=== PATIENT | female | born 1990 | race African-American/Black ===

== ENCOUNTER → 2018-02-10 | Outpatient (CLI) | payer OTHER | END | disposition home or self-care (01) | LOC: U/S 17:48 | DX: O36.71X0 Maternal care for viable fetus in abdominal pregnancy, first trimester, not applicable or unspecified (principal); Z3A.10 10 weeks gestation of pregnancy | CPT/HCPCS: 76801 ==

== ENCOUNTER 2018-08-04 12:41 | Outpatient (CLI) | payer OTHER ==
[2018-08-04 13:46] LABS: ADD UMIC YES; UR ASCORBIC ACID NEGATIVE (NEGATIVE); UR BACTERIA FEW /HPF (NONE SEEN); UR BILIRUBIN (Dip) NEGATIVE (NEGATIVE); UR BLOOD (Dip) 1+ mg/dL (NEGATIVE); UR BUDDING YEAST FEW /HPF (NONE SEEN); UR CLARITY CLOUDY (CLEAR); UR COLOR YELLOW (YELLOW); UR GLUCOSE (Dip) NEGATIVE (NEGATIVE); UR KETONES (Dip) NEGATIVE (NEGATIVE); UR LEUKOCYTE ESTERASE (Dip) 3+ Leu/ul (NEGATIVE); UR MUCUS FEW /HPF (NONE SEEN); UR NITRITE (Dip) POSITIVE (NEGATIVE); UR RBC 15 /HPF (0-5); UR SPECIFIC GRAVITY (Dip) 1.015 (1.003-1.030); UR SQUAMOUS EPITHELIAL CELL FEW /HPF (FEW); UR TOTAL PROTEIN (Dip) 1+ mg/dl (NEGATIVE); UR UROBILINOGEN (Dip) NEGATIVE (NEGATIVE); UR WBC > 182 /HPF (0-5)
[2018-08-04] MEDS: SOD CHLORIDE 0.9% 1,000 ML IV (14:27)
[2018-08-04] MEDS: CEFTRIAXONE 1 GM/50 ML (PMX) 50 ML IVPB (14:31)
== END 2018-08-04 16:00 | disposition home or self-care (01) ==
LOC: OBT 12:41 → L-D 12:42 → OBT 16:00
DX: O26.893 Other specified pregnancy related conditions, third trimester (principal); Z3A.35 35 weeks gestation of pregnancy; R30.0 Dysuria
CPT/HCPCS: 76818; 81001; 87086

== ENCOUNTER 2018-08-30 09:40 | Inpatient (IN) | payer OTHER ==
[2018-08-30] MEDS: LACTATED RINGER'S 1,000 ML IV ×3 (10:43→21:22)
[2018-08-30] MEDS ORDERED: METHYLERGONOVINE 0.2 MG INJ IM (11:00)
[2018-08-30] MEDS ORDERED: CARBOPROST 250 MCG INJ IM (11:00)
[2018-08-30] MEDS ORDERED: LIDOCAINE 1% (MPF) 30 ML INJ INJ (11:00)
[2018-08-30] MEDS ORDERED: MISOPROSTOL 200 MCG TAB PR (11:00)
[2018-08-30] MEDS ORDERED: OXYTOCIN 30 UNITS/LR 500 ML IV ×2 (11:00)
[2018-08-30] MEDS ORDERED: IBUPROFEN 600 MG TAB PO (11:00)
[2018-08-30 11:47] LABS: ADD MAN DIFF? NO
[2018-08-30 11:54] LABS: WHITE BLOOD COUNT 7.2 10^3/ul (4.8-10.8)
[2018-08-30 11:54] LABS: BASOPHILS % 0.3 % (0.0-2.0); EOSINOPHILS # 0.1 10^3/ul (0.0-0.5); EOSINOPHILS % 1.3 % (0.0-7.0); HEMATOCRIT 34.1 % (37.0-47.0); HEMOGLOBIN 10.7 g/dl (12.0-16.0); LYMPHOCYTES # 1.6 10^3/ul (0.8-2.9); LYMPHOCYTES % 21.5 % (15.0-51.0); MEAN CORPUSCULAR HEMOGLOBIN 26.7 pg (29.0-33.0); MEAN CORPUSCULAR HGB CONC 31.4 g/dl (32.0-37.0); MONOCYTE # 0.7 10^3/ul (0.3-0.9); MONOCYTES % 9.9 % (0.0-11.0); NEUTROPHIL # 4.8 10^3/ul (1.6-7.5); NEUTROPHILS % 66.3 % (39.0-77.0); PLATELET COUNT 277 10^3/UL (140-415); RED BLOOD COUNT 4.01 10^6/ul (4.20-5.40); RED CELL DISTRIBUTION WIDTH 14.9 % (11.5-14.5)
[2018-08-30] MEDS ORDERED: BUTORPHANOL 2 MG INJ IV (12:00)
[2018-08-30 12:10] LABS: INR 0.98; PROTIME 13.1 Sec (11.9-14.9)
[2018-08-30 12:11] LABS: PARTIAL THROMBOPLASTIN TIME 26.5 Sec (23.0-35.0)
[2018-08-30 12:46] LABS: HEPATITIS B SURFACE ANTIGEN NEGATIVE (NEGATIVE)
[2018-08-30] MEDS: MISOPROSTOL 50 MCG CAPSULE PO ×3 (13:39→21:00)
[2018-08-30 20:55] LABS: RAPID PLASMA REAGIN NONREACTIVE (NR)
[2018-08-31] MEDS: MISOPROSTOL 50 MCG CAPSULE PO ×5 (01:00→17:00)
[2018-08-31] MEDS: LACTATED RINGER'S 1,000 ML IV ×5 (05:18→23:38)
[2018-08-31] MEDS: OXYTOCIN 30 UNITS/LR 500 ML IV (10:54)
[2018-08-31] MEDS ORDERED: FENTAnyl 2MCG/ML-ROPIV 0.2% 100 ML (12:19)
[2018-08-31] MEDS ORDERED: DIPHENHYDRAMINE 50 MG INJ IV (12:30)
[2018-08-31] MEDS ORDERED: TRIMETHOBENZAMIDE 100 MG/ML VIAL IM (12:30)
[2018-08-31] MEDS ORDERED: NALOXONE (0.4 MG/ML) INJ IV (12:30)
[2018-08-31] MEDS: ONDANSETRON 4 MG INJ IV (17:09)
[2018-08-31] MEDS: FENTAnyl 2MCG/ML-ROPIV 0.2% 100 ML BAG EPI (18:31)
[2018-09-01] MEDS: FENTAnyl 2MCG/ML-ROPIV 0.2% 100 ML BAG EPI (00:28)
[2018-09-01] MEDS: ACETAMINOPHEN 325 MG TAB PO (01:05)
[2018-09-01] MEDS ORDERED: AMPICILLIN 2 GM/NS (PMX) 100 ML (02:52)
[2018-09-01] MEDS: AMPICILLIN 2 GM/NS (PMX) 100 ML IVPB (03:00)
[2018-09-01] MEDS: MINERAL OIL LIGHT 10 ML VIAL TOP (03:54)
[2018-09-01] MEDS: OXYTOCIN 30 UNITS/LR 500 ML IV (04:17)
[2018-09-01] MEDS: KETOROLAC 30 MG INJ IV (04:49)
[2018-09-01] MEDS ORDERED: DIBUCAINE 1% 30 GM OINT TOP (05:30)
[2018-09-01] MEDS ORDERED: MISOPROSTOL 200 MCG TAB PR (05:30)
[2018-09-01] MEDS: LACTATED RINGER'S 1,000 ML IV* (05:30)
[2018-09-01] MEDS ORDERED: METHYLERGONOVINE 0.2 MG INJ IM (05:30)
[2018-09-01] MEDS ORDERED: CARBOPROST 250 MCG INJ IM (05:30)
[2018-09-01] MEDS ORDERED: OXYTOCIN 30 UNITS/LR 500 ML IV (05:30)
[2018-09-01] MEDS ORDERED: ZOLPIDEM 5 MG TAB PO (05:30)
[2018-09-01] MEDS ORDERED: LANOLIN HPA 1 PKT TOP (05:30)
[2018-09-01] MEDS: CEPHALEXIN 500 MG CAP PO ×4 (06:28→23:53)
[2018-09-01] MEDS: IBUPROFEN 600 MG TAB PO ×4 (06:28→23:53)
[2018-09-01] MEDS ORDERED: AMPICILLIN 1 GM/NS (PMX) 50 ML IVPB (07:00)
[2018-09-01] MEDS: MAGNESIUM HYDROXIDE 30ML CUP PO ×2 (08:53→21:00)
[2018-09-01] MEDS: SENNA/DOCUSATE NA (8.6MG/50MG) TAB PO ×2 (08:53→21:00)
[2018-09-01] MEDS: HYDROCODONE/APAP (5/325) TAB PO (22:48)
[2018-09-02] MEDS: CEPHALEXIN 500 MG CAP PO ×4 (05:03→23:37)
[2018-09-02] MEDS: IBUPROFEN 600 MG TAB PO ×4 (05:03→23:38)
[2018-09-02] MEDS: HYDROCODONE/APAP (5/325) TAB PO ×2 (05:04→18:21)
[2018-09-02 08:37] LABS: ADD MAN DIFF? NO
[2018-09-02 08:43] LABS: WHITE BLOOD COUNT 8.9 10^3/ul (4.8-10.8)
[2018-09-02 08:43] LABS: BASOPHILS % 0.3 % (0.0-2.0); EOSINOPHILS # 0.3 10^3/ul (0.0-0.5); EOSINOPHILS % 2.9 % (0.0-7.0); HEMATOCRIT 28.7 % (37.0-47.0); HEMOGLOBIN 9.1 g/dl (12.0-16.0); LYMPHOCYTES # 1.9 10^3/ul (0.8-2.9); LYMPHOCYTES % 21.4 % (15.0-51.0); MEAN CORPUSCULAR HEMOGLOBIN 27.2 pg (29.0-33.0); MEAN CORPUSCULAR HGB CONC 31.7 g/dl (32.0-37.0); MEAN CORPUSCULAR VOLUME 85.7 fl (82.0-101.0); MEAN PLATELET VOLUME 10.5 fl (7.4-10.4); MONOCYTE # 0.9 10^3/ul (0.3-0.9); MONOCYTES % 9.9 % (0.0-11.0); NEUTROPHIL # 5.8 10^3/ul (1.6-7.5); NEUTROPHILS % 65.1 % (39.0-77.0); PLATELET COUNT 205 10^3/UL (140-415); RED BLOOD COUNT 3.35 10^6/ul (4.20-5.40); RED CELL DISTRIBUTION WIDTH 14.7 % (11.5-14.5)
[2018-09-02] MEDS: MAGNESIUM HYDROXIDE 30ML CUP PO ×2 (09:00→20:47)
[2018-09-02] MEDS: SENNA/DOCUSATE NA (8.6MG/50MG) TAB PO ×2 (09:00→20:47)
[2018-09-02] MEDS: MEPERIDINE 25 MG INJ IV (09:14)
[2018-09-02] MEDS: BENZOCAINE 20% 56 ML SPRAY TOP (09:17)
[2018-09-02] MEDS: LACTATED RINGER'S 1,000 ML IV ×2 (09:55→14:44)
[2018-09-02] MEDS ORDERED: MIDAZOLAM 1 MG/ML 2 ML INJ ×2 (13:00→13:34)
[2018-09-02] MEDS ORDERED: ONDANSETRON 4 MG INJ (13:12)
[2018-09-02] MEDS ORDERED: CEFAZOLIN 1 GM INJ (13:13)
[2018-09-02] MEDS: BUPIVACAINE 0.25%/EPI (SDV) 30 ML INJ (13:55)
[2018-09-02] MEDS ORDERED: MEPERIDINE 25 MG INJ IV (14:00)
[2018-09-02] MEDS ORDERED: FENTAnyl 50 MCG/ML VIAL IV ×2 (14:00)
[2018-09-02] MEDS: FENTAnyl 50 MCG/ML VIAL IV (14:34)
[2018-09-02] MEDS: METOCLOPRAMIDE 10 MG INJ IV (14:34)
[2018-09-02] MEDS: BUTORPHANOL 2 MG INJ IM (14:39)
[2018-09-02] MEDS: KETOROLAC 60 MG INJ IM (15:18)
[2018-09-02] MEDS ORDERED: ACETAMINOPHEN 325 MG TAB PO (17:30)
[2018-09-03] MEDS: CEPHALEXIN 500 MG CAP PO ×2 (05:28→11:14)
[2018-09-03] MEDS: IBUPROFEN 600 MG TAB PO ×2 (05:28→11:14)
[2018-09-03] MEDS: WITCH HAZEL/GLYCERIN PAD PR (09:11)
[2018-09-03] MEDS: MAGNESIUM HYDROXIDE 30ML CUP PO (09:11)
[2018-09-03] MEDS: SENNA/DOCUSATE NA (8.6MG/50MG) TAB PO (09:12)
[2018-09-03] MEDS: DIPHTH/TET/ACEL PERTUSS (ADULT) 0.5 ML VIAL IM* (09:42)
[2018-09-03] MEDS: VARICELLA VACCINE LIVE/PF 1,350 UNIT/0.5 ML ML SC* (09:42)
[2018-09-03] MEDS: MEASLES,MUMPS,RUBELLA VACCINE INJ SC* (09:43)
== END 2018-09-03 13:35 | disposition home or self-care (01) | DRG 798 ==
LOC: PP1 09-01 05:45 → L-D 09:40
PROVIDERS: Obstetrics & Gynecology
PROC: 0UB70ZZ Excision of Bilateral Fallopian Tubes, Open Approach (ICD-10-PCS; 2018-09-02 12:30)
PROC: 10E0XZZ Delivery of Products of Conception, External Approach (ICD-10-PCS; principal; 2018-09-02 13:00)
DX: O69.81X0 Labor and delivery complicated by cord around neck, without compression, not applicable or unspecified (principal); Z37.0 Single live birth; O99.214 Obesity complicating childbirth; E66.9 Obesity, unspecified; Z3A.39 39 weeks gestation of pregnancy; Z30.2 Encounter for sterilization
CPT/HCPCS: 62322; 76815; 85025; 85610; 85730; 86592; 86850; 86900; 86901; 87086; 87340; 88302; 90716